=== PATIENT | male | born 1985 | race African-American/Black ===

== ENCOUNTER 2022-02-05 10:18 | Emergency (ER) | payer OTHER ==
[~2022-02-05] VITALS: Ht 172.7 cm; Wt 62.1 kg
[2022-02-05 10:24] VITALS: BP 157/91
--- NOTE | 2022-02-05 10:27 | NUR ---
AMBULATED TO BED 9
[2022-02-05] MEDS ORDERED: KETOROLAC 30 MG/ML VIAL IVP ONE (10:45)
[2022-02-05] MEDS ORDERED: NACL 0.9% 1,000 ML IV ONE (10:45)
[2022-02-05] MEDS ORDERED: KETOROLAC 30 MG/ML VIAL ONE (10:47)
--- NOTE | 2022-02-05 11:00 | NUR ---
PT C/O BILATERAL ARM PAIN SINCE THIS AM, STATES FEELS LIKE HE IS IN A SICKLE CELL CRISIS. IV INSERTED TO LEFT FA #[id number], MEDICATED PER ORDER. PT REQUESTING MORPHINE FOR PAIN, DR MAHMOOD MADE AWARE
[2022-02-05] MEDS ORDERED: ONDANSETRON 4 MG/2 ML VIAL IVP ONE (11:05)
[2022-02-05] MEDS ORDERED: MORPHINE SULFATE 10 MG/ML VIAL IVP ONE (11:05)
[2022-02-05 11:10] LABS: BASOPHILS # (AUTO) 0.2 K/uL (0.00-0.22); BASOPHILS % (AUTO) 1.9 % (0.0-2.0); EOSINOPHILS # (AUTO) 0.4 K/uL (0-0.4); EOSINOPHILS % (AUTO) 3.1 % (0.0-4.0); HEMATOCRIT 25.5 % (36-52); HEMOGLOBIN 9.1 g/dL (12.0-18.0); LYMPHOCYTES # (AUTO) 2.9 K/uL (2.0-11.5); LYMPHOCYTES % (AUTO) 23.1 % (20.5-51.1); MEAN CORPUSCULAR HEMOGLOBIN 35 pg (27-31); MEAN CORPUSCULAR HGB CONC 36 g/dL (33-37); MEAN CORPUSCULAR VOLUME 96.4 fL (80-94); MONOCYTES # (AUTO) 2.1 K/uL (0.8-1.0); NEUTROPHILS # (AUTO) 6.8 K/uL (1.8-7.7); NEUTROPHILS % (AUTO) 54.9 % (42.2-75.2); PLATELET COUNT (AUTO) 278 K/uL (140-450); RED BLOOD CELL COUNT(AUTO) 2.64 MIL/uL (4.20-6.10); RED CELL DISTRIBUTION WIDTH 20.8 % (11.6-13.7); WHITE BLOOD COUNT (AUTO) 12.4 K/uL (4.8-10.8)
[2022-02-05 11:28] LABS: ANION GAP 12.4 (8-16); CARBON DIOXIDE 27.1 mmol/L (21-32); CREATININE 0.6 mg/dL (0.6-1.3); POTASSIUM 3.5 mmol/L (3.5-5.1); TOTAL BILIRUBIN 5.1 mg/dL (0.0-1.0)
[2022-02-05 11:45] LABS: APPEARANCE,URINE CLEAR (CLEAR); BILIRUBIN,URINE NEGATIVE (NEGATIVE); BLOOD, URINE NEGATIVE (NEGATIVE); COLOR,URINE BROWN (YELLOW); LEUKOCYTE ESTERASE ,URINE NEGATIVE (NEGATIVE); NITRITE, URINE NEGATIVE (NEGATIVE); UGLUCOSE NEGATIVE (NEGATIVE)
[2022-02-05 11:57] LABS: BARBITURATE, URINE NEGATIVE ng/ml (NEG <=200); BENZODIAZEPINE, URINE NEGATIVE ng/mL (NEG <=200); CANNABINOID, URINE NEGATIVE ng/mL (NEG <=50); COCAINE, URINE NEGATIVE ng/mL (NEG <=300); OPIATE, URINE NEGATIVE ng/mL (NEG <=2000); PHENCYCLIDINE SCREEN,URINE NEGATIVE ng/mL (NEG <=25)
[2022-02-05] MEDS ORDERED: MORPHINE SULFATE 4 MG/ML SYR IVP ONE (12:10)
--- NOTE | 2022-02-05 13:04 | NUR ---
PT REQUESTING MORE IV FLUIDS AND IV PAIN MEDICATION, DR MAHMOOD MADE AWARE
[2022-02-05] MEDS ORDERED: HYDR-5080 PO (13:23)
[2022-02-05] MEDS ORDERED: NAPR-54 PO (13:23)
[2022-02-05 13:42] VITALS: BP 122/80
--- NOTE | 2022-02-05 13:43 | NUR ---
Patient discharged with v/s stable. Written and verbal after care instructions given and explained. Patient alert, oriented and verbalized understanding of instructions. Ambulatory with steady gait. All questions addressed prior to discharge. ID band removed. Patient advised to follow up with PMD. Rx of NORCO, NAPROXEN given. Patient educated on indication of medication including possible reaction and side effects. Opportunity to ask questions provided and answered.
== END 2022-02-05 13:43 | disposition home or self-care (01) ==
LOC: MED 10:18
DX: D57.219 Sickle-cell/Hb-C disease with crisis, unspecified (principal); M79.601 Pain in right arm; M79.602 Pain in left arm; D57.00 Hb-SS disease with crisis, unspecified; I10 Essential (primary) hypertension; Z90.49 Acquired absence of other specified parts of digestive tract; Z79.899 Other long term (current) drug therapy
CPT/HCPCS: 36415; 71045; 80053; 80305; 81003; 83605; 85025; 85045; 87040; 96361; 96374; 96375; 96376; 99284; J1885; J2270; J2405; J7030; Q0092